=== PATIENT | male | born 1980 | race African-American/Black ===

== ENCOUNTER 2022-11-30 05:57 | Emergency (ER) | payer OTHER ==
[~2022-11-30] VITALS: Ht 193 cm; Wt 157.7 kg
[2022-11-30 06:45] VITALS: BP 137/98
[2022-11-30] MEDS ORDERED: ACETAMINOPHEN 500 MG TAB PO ONE (07:00)
[2022-11-30] MEDS ORDERED: IBUPROFEN 800 MG TAB PO ONE (07:30)
[2022-11-30] MEDS ORDERED: METH750T22 PO (07:35)
[2022-11-30] MEDS ORDERED: IBUP800T27 PO (07:35)
== END 2022-11-30 07:38 | disposition home or self-care (01) ==
LOC: ER 05:57
DX: S29.012A Strain of muscle and tendon of back wall of thorax, initial encounter (principal); V49.40XA Driver injured in collision with unspecified motor vehicles in traffic accident, initial encounter; Y93.89 Activity, other specified; Y92.89 Other specified places as the place of occurrence of the external cause; Y99.8 Other external cause status
CPT/HCPCS: 72070